=== PATIENT | female | born 1935 | race African-American/Black ===

== ENCOUNTER 2020-05-31 15:45 | Inpatient (IN) | payer BC, MEDICARE ==
[~2020-05-31] VITALS: Ht 157.5 cm; Wt 53.1 kg
[~2020-05-31 15:45] MED LIST: ALPR0.25 PO; APIX5TAB PO; CARV12.545 PO; ETHA25TA2 PO; LISI-186 PO
[2020-05-31 16:51] LABS: BASOPHILS % 0.3 % (0.0-2.0); EOSINOPHILS % 0.1 % (0.0-5.0); HEMATOCRIT. 39.5 % (36.0-48.0); HEMOGLOBIN. 12.6 g/dL (12.0-16.0); LYMPHOCYTES % 21.3 % (20.0-50.0); MEAN CORPUSCULAR HEMOGLOBIN 29.1 pg (28.0-32.0); MEAN CORPUSCULAR VOLUME 90.9 fL (81.0-99.0); MEAN PLATELET VOLUME 8.5 fl (7.4-10.4); MONOCYTES % 6.7 % (2.0-8.0); NEUTROPHILS % 71.6 % (40.0-76.0); PLATELET 195 x1000/uL (130-400); RED BLOOD CELL COUNT 4.34 mill/uL (4.2-5.4); RED CELL DISTRIBUTION WIDTH 15.2 % (11.6-14.6)
[2020-05-31 16:57] LABS: CHLORIDE 108 mEq/L (98-107)
[2020-05-31 16:59] LABS: INR 1.1; PROTHROMBIN TIME 11.7 sec (9.6-11.0)
[2020-05-31] MEDS ORDERED: CALCIUM GLUCONATE 100MG/ML 10ML VIAL IV ONE (17:00)
[2020-05-31] MEDS ORDERED: AMIODARONE HCL 900 MG in DEXT 5% WATER 482 ML IV PRN (17:15)
[2020-05-31] MEDS ORDERED: MAGNESIUM 2 G PREMIX 50 ML IV ONE (17:30)
[2020-05-31] MEDS ORDERED: DEXTROSE 50% WATER 50ML SYRINGE IV PRN (18:30)
[2020-05-31] MEDS ORDERED: ONDANSETRON HCL 4MG/2ML INJ IV PRN (18:30)
[2020-05-31 18:51] LABS: PHOSPHORUS 4.5 mg/dL (2.5-4.9)
[2020-05-31] MEDS ORDERED: PROPOFOL 200MG/20ML VIAL IV ONE (20:00)
[2020-05-31] MEDS ORDERED: FENTANYL CITRATE/PF 50MCG/ML 2ML VIAL IV ONE (20:00)
[2020-05-31 20:14] LABS: BG BASE EXCESS -4.6 mmol/L (-2.0-2.0); BG CARBOXYHEMOGLOBIN 0.2 % (0.5-1.5); BG DEOXYHEMOGLOBIN 0.8 % (0.0-5.0); BG FRACTION INSPIRED OXYGEN 100; BG HCO3 ACT 20.8 mmol/L (22.0-26.0); BG METHEMOGLOBIN 0.2 % (0.0-1.5); BG OXYGEN SATURATION 99.2 % (92.0-98.5); BG OXYHEMOGLOBIN 98.8 % (94.0-97.0); BG PCO2 39.5 mmHg (35.0-45.0); BG PH 7.339 (7.350-7.450); BG PO2 207.9 mmHg (75.0-100.0); BG SAMPLE SITE RIGHT RADIAL; BG TOTAL HEMOGLOBIN 11.5 g/dL (12.0-18.0); BG VENT MODE VENT - AC
[2020-05-31] MEDS ORDERED: PROPOFOL 10MG/ML 100ML 100 ML IV ONE (20:15)
[2020-05-31] MEDS ORDERED: BLOOD SUGAR DIAGNOSTIC STRIP TEST SCH (21:00)
[2020-05-31] MEDS ORDERED: INSULIN LISPRO 100 UNITS/ML SUBCUT SCH (21:00)
[2020-05-31] MEDS ORDERED: IODIXANOL 320MG/ML 200ML BOTTLE ONE (21:04)
[2020-05-31] MEDS ORDERED: LIDOCAINE HCL 1% 20ML VIAL (Pyxis) INJ ONE (21:04)
[2020-05-31] MEDS ORDERED: ATROPINE SULFATE 1MG/10ML SYR IV PRN (21:30)
[2020-05-31] MEDS ORDERED: NICARDIPINE 40MG/200ML PREMIX 200 ML IV PRN (23:00)
[2020-05-31] MEDS ORDERED: DOPAMINE 800MG PREMIX (DOUBLE) 250 ML IV PRN (23:00)
[2020-05-31] MEDS ORDERED: NOREPINEPHRINE 8 MG in DEXT 5% WATER 242 ML IV PRN (23:00)
[2020-05-31] MEDS ORDERED: PHENYLEPHRINE 100 MG in DEXT 5% WATER 240 ML IV PRN (23:00)
[2020-05-31 23:05] LABS: CREATINE KINASE MB FRACTION 4.9 ng/mL (0.5-3.6)
[2020-05-31 23:14] VITALS: BP 201/120
[2020-05-31 23:15] VITALS: BP 201/113
[2020-05-31] MEDS: HYDRALAZINE 20MG/ML VIAL IV PRN (23:28)
[2020-05-31 23:30] VITALS: BP 199/116
[2020-05-31 23:34] VITALS: BP 198/109
[2020-05-31 23:37] VITALS: BP 180/59
[2020-05-31 23:45] VITALS: BP 153/81
[2020-06-01] VITALS (69 sets, daily range): BP systolic 120–186; BP diastolic 44–96
[2020-06-01] MEDS: NICARDIPINE 50 MG in SODIUM CHLORIDE 0.9% 250 ML IV PRN (01:11)
[2020-06-01 05:41] LABS: BASOPHILS % 0.7 % (0.0-2.0); HEMATOCRIT. 33.3 % (36.0-48.0); HEMOGLOBIN. 10.9 g/dL (12.0-16.0); LYMPHOCYTES % 11.1 % (20.0-50.0); MEAN CORPUSCULAR HEMOGLOBIN 29.2 pg (28.0-32.0); MEAN CORPUSCULAR VOLUME 89.4 fL (81.0-99.0); MONOCYTES % 7.7 % (2.0-8.0); NEUTROPHILS % 80.5 % (40.0-76.0); PLATELET 174 x1000/uL (130-400); RED BLOOD CELL COUNT 3.72 mill/uL (4.2-5.4); RED CELL DISTRIBUTION WIDTH 14.9 % (11.6-14.6)
[2020-06-01 05:52] LABS: CHLORIDE 110 mEq/L (98-107)
[2020-06-01 06:04] LABS: LDL CHOLESTEROL 86 mg/dL (5-100)
[2020-06-01 06:06] LABS: CREATINE KINASE 151 IU/L (26-192); HDL CHOLESTEROL 71 mg/dL (40-59)
[2020-06-01 06:08] LABS: CREATINE KINASE MB FRACTION 5.7 ng/mL (0.5-3.6)
[2020-06-01] MEDS: PROPOFOL 10MG/ML 100ML 100 ML IV PRN ×2 (08:48→18:58)
[2020-06-01] MEDS ORDERED: FUROSEMIDE 40MG/4ML VIAL IVP SCH (09:00)
[2020-06-01 09:01] LABS: BG CARBOXYHEMOGLOBIN 0.3 % (0.5-1.5); BG DEOXYHEMOGLOBIN 0.9 % (0.0-5.0); BG FRACTION INSPIRED OXYGEN 70; BG HCO3 ACT 25.7 mmol/L (22.0-26.0); BG METHEMOGLOBIN 0.3 % (0.0-1.5); BG OXYGEN SATURATION 99.1 % (92.0-98.5); BG OXYHEMOGLOBIN 98.5 % (94.0-97.0); BG PCO2 37.1 mmHg (35.0-45.0); BG PH 7.459 (7.350-7.450); BG PO2 197.3 mmHg (75.0-100.0); BG SAMPLE SITE ALINE; BG TOTAL HEMOGLOBIN 11.4 g/dL (12.0-18.0); BG VENT MODE VENT - AC
[2020-06-01] MEDS: ENOXAPARIN 40MG/0.4ML SYR SUBCUT SCH (12:00)
[2020-06-01] MEDS: INSULIN LISPRO 100 UNITS/ML SUBCUT SCH ×2 (12:00→17:50)
[2020-06-01] MEDS: BLOOD SUGAR DIAGNOSTIC STRIP TEST SCH ×2 (12:00→17:50)
[2020-06-01 12:50] LABS: T4 FREE 1.36 ng/dL (0.76-1.46)
[2020-06-01] MEDS ORDERED: IPRATROPIUM/ALBUTEROL 0.5-3(2.5)MG/3ML NEB HHN PRN (15:45)
[2020-06-01] MEDS ORDERED: CEFTRIAXONE 1 G PREMIX 50 ML IV SCH (16:15)
[2020-06-01] MEDS ORDERED: LEVOFLOXACIN 500MG PREMIX 100 ML IV SCH (18:00)
[2020-06-01] MEDS: HYDRALAZINE 20MG/ML VIAL IV PRN (20:52)
[2020-06-02] VITALS (113 sets, daily range): BP systolic 114–192; BP diastolic 20–79
[2020-06-02] MEDS: IPRATROPIUM/ALBUTEROL 0.5-3(2.5)MG/3ML NEB HHN SCH ×3 (00:15→15:34)
[2020-06-02] MEDS: BLOOD SUGAR DIAGNOSTIC STRIP TEST SCH ×5 (00:17→23:31)
[2020-06-02] MEDS: HYDRALAZINE 20MG/ML VIAL IV PRN ×3 (03:42→18:24)
[2020-06-02] MEDS: PROPOFOL 10MG/ML 100ML 100 ML IV PRN ×3 (05:53→13:38)
[2020-06-02] MEDS: INSULIN LISPRO 100 UNITS/ML SUBCUT SCH ×5 (05:53→23:31)
[2020-06-02 06:11] LABS: BASOPHILS % 0.2 % (0.0-2.0); EOSINOPHILS % 0.1 % (0.0-5.0); HEMATOCRIT. 34.2 % (36.0-48.0); LYMPHOCYTES % 11.7 % (20.0-50.0); MEAN CORPUSCULAR HEMOGLOBIN 28.9 pg (28.0-32.0); MEAN CORPUSCULAR VOLUME 89.6 fL (81.0-99.0); MONOCYTES % 8.5 % (2.0-8.0); NEUTROPHILS % 79.5 % (40.0-76.0); PLATELET 179 x1000/uL (130-400); RED BLOOD CELL COUNT 3.81 mill/uL (4.2-5.4); RED CELL DISTRIBUTION WIDTH 15.3 % (11.6-14.6)
[2020-06-02 06:17] LABS: CHLORIDE 110 mEq/L (98-107)
[2020-06-02] MEDS ORDERED: MORPHINE SULFATE 2 MG/ML CPJ (NOT FOR IM USE) IV PRN (10:15)
[2020-06-02] MEDS ORDERED: POTASSIUM CHLORIDE INJ 40 MEQ in DEXT 5% WATER 250 ML IV ONE (11:00)
[2020-06-02] MEDS: ENOXAPARIN 40MG/0.4ML SYR SUBCUT SCH (11:51)
[2020-06-02 17:20] LABS: BG BASE EXCESS -2.4 mmol/L (-2.0-2.0); BG CARBOXYHEMOGLOBIN 0.3 % (0.5-1.5); BG DEOXYHEMOGLOBIN 1.4 % (0.0-5.0); BG FRACTION INSPIRED OXYGEN 40; BG HCO3 ACT 20.3 mmol/L (22.0-26.0); BG METHEMOGLOBIN 0.3 % (0.0-1.5); BG OXYGEN SATURATION 98.6 % (92.0-98.5); BG PH 7.464 (7.350-7.450); BG PO2 139.2 mmHg (75.0-100.0); BG SAMPLE SITE RIGHT RADIAL; BG TOTAL HEMOGLOBIN 11.5 g/dL (12.0-18.0); BG VENT MODE VENT - CPAP
[2020-06-02] MEDS ORDERED: LEVOFLOXACIN 250MG PREMIX 50 ML IV SCH (18:00)
[2020-06-03] VITALS (106 sets, daily range): BP systolic 116–204; BP diastolic 5–113
[2020-06-03] MEDS: IPRATROPIUM/ALBUTEROL 0.5-3(2.5)MG/3ML NEB HHN SCH ×3 (00:33→15:56)
[2020-06-03] MEDS: HYDRALAZINE 20MG/ML VIAL IV PRN ×5 (04:12→20:16)
[2020-06-03] MEDS: BLOOD SUGAR DIAGNOSTIC STRIP TEST SCH ×3 (05:43→17:51)
[2020-06-03] MEDS: INSULIN LISPRO 100 UNITS/ML SUBCUT SCH ×3 (05:46→17:50)
[2020-06-03 06:01] LABS: BASOPHILS % 0.1 % (0.0-2.0); EOSINOPHILS % 0.1 % (0.0-5.0); HEMATOCRIT. 34.3 % (36.0-48.0); LYMPHOCYTES % 10.6 % (20.0-50.0); MEAN CORPUSCULAR HEMOGLOBIN 29.3 pg (28.0-32.0); MEAN CORPUSCULAR VOLUME 91.2 fL (81.0-99.0); MONOCYTES % 8.8 % (2.0-8.0); NEUTROPHILS % 80.4 % (40.0-76.0); PLATELET 187 x1000/uL (130-400); RED BLOOD CELL COUNT 3.76 mill/uL (4.2-5.4); RED CELL DISTRIBUTION WIDTH 15.6 % (11.6-14.6)
[2020-06-03 06:20] LABS: CHLORIDE 110 mEq/L (98-107)
[2020-06-03] MEDS ORDERED: HYDRALAZINE 20MG/ML VIAL IV SCH (09:45)
[2020-06-03] MEDS: ENOXAPARIN 40MG/0.4ML SYR SUBCUT SCH (11:00)
[2020-06-03] MEDS: LACTULOSE 20G/30ML UDC PO SCH ×2 (15:53→22:04)
[2020-06-04] VITALS (65 sets, daily range): BP systolic 121–210; BP diastolic 40–106
[2020-06-04] MEDS: IPRATROPIUM/ALBUTEROL 0.5-3(2.5)MG/3ML NEB HHN SCH ×3 (00:02→15:09)
[2020-06-04] MEDS: HYDRALAZINE 20MG/ML VIAL IV PRN ×3 (02:18→17:10)
[2020-06-04 05:53] LABS: CHLORIDE 115 mEq/L (98-107)
[2020-06-04 06:00] LABS: PROTHROMBIN TIME 11.2 sec (9.6-11.0)
[2020-06-04] MEDS: INSULIN LISPRO 100 UNITS/ML SUBCUT SCH ×4 (06:00→18:00)
[2020-06-04] MEDS: BLOOD SUGAR DIAGNOSTIC STRIP TEST SCH ×4 (06:00→17:42)
[2020-06-04] MEDS: LACTULOSE 20G/30ML UDC PO SCH ×3 (06:00→22:00)
[2020-06-04] MEDS: NICARDIPINE 50 MG in SODIUM CHLORIDE 0.9% 250 ML IV PRN (06:10)
[2020-06-04 06:11] LABS: BASOPHILS % 0.5 % (0.0-2.0); EOSINOPHILS % 0.7 % (0.0-5.0); HEMOGLOBIN. 10.2 g/dL (12.0-16.0); MEAN CORPUSCULAR HEMOGLOBIN 28.7 pg (28.0-32.0); MEAN CORPUSCULAR VOLUME 89.8 fL (81.0-99.0); MEAN PLATELET VOLUME 8.8 fl (7.4-10.4); MONOCYTES % 8.5 % (2.0-8.0); NEUTROPHILS % 78.3 % (40.0-76.0); PLATELET 197 x1000/uL (130-400); RED BLOOD CELL COUNT 3.56 mill/uL (4.2-5.4); RED CELL DISTRIBUTION WIDTH 15.8 % (11.6-14.6)
[2020-06-04] MEDS ORDERED: GENTAMICIN SULF 40MG/ML 2ML VIAL ONE (07:31)
[2020-06-04] MEDS ORDERED: LIDOCAINE HCL 1% 20ML VIAL (Pyxis) INJ ONE ×2 (07:32→07:39)
[2020-06-04] MEDS ORDERED: GENTAMICIN/NS IRRIGATION 500 ML IR ONE (07:32)
[2020-06-04] MEDS ORDERED: IOHEXOL-300 100 ML BOTTLE ONE (07:42)
[2020-06-04] MEDS ORDERED: FENTANYL CITRATE/PF 50MCG/ML 2ML VIAL ONE (07:51)
[2020-06-04] MEDS ORDERED: MIDAZOLAM HCL 2 MG/2 ML VIAL ONE (07:52)
[2020-06-04] MEDS ORDERED: CLINDAMYCIN 600MG PREMIX 50 ML IV SCH (08:00)
[2020-06-04] MEDS ORDERED: ONDANSETRON HCL 4MG/2ML INJ ONE (08:48)
[2020-06-04] MEDS ORDERED: METOPROLOL TARTRATE 5MG/5ML VIAL IV ONE ×2 (08:49→09:04)
[2020-06-04] MEDS ORDERED: HYDROCODONE/ACETAMINOPHEN 5/325MG TABLET PO PRN (09:15)
[2020-06-04] MEDS ORDERED: POTASSIUM CHLORIDE INJ 40 MEQ in DEXT 5% WATER 250 ML IV NR (11:00)
[2020-06-04] MEDS ORDERED: POTASSIUM CHLORIDE 20MEQ/PACKET PO SCH ×2 (13:10→17:00)
[2020-06-04] MEDS ORDERED: METOPROLOL TARTRATE 5MG/5ML VIAL IV SCH (13:15)
[2020-06-04] MEDS ORDERED: BUMETANIDE 0.25MG/ML 2ML VIAL IV SCH (13:30)
[2020-06-04] MEDS: NEBIVOLOL HCL 5 MG TABLET PO SCH ×2 (14:02→22:26)
[2020-06-04] MEDS: METOPROLOL TARTRATE 25MG TABLET PO SCH (19:01)
[2020-06-05] VITALS (18 sets, daily range): BP systolic 103–156; BP diastolic 51–99
[2020-06-05] MEDS: IPRATROPIUM/ALBUTEROL 0.5-3(2.5)MG/3ML NEB HHN SCH ×3 (01:29→15:23)
[2020-06-05 05:55] LABS: BASOPHILS % 0.4 % (0.0-2.0); EOSINOPHILS % 0.5 % (0.0-5.0); HEMATOCRIT. 29.9 % (36.0-48.0); HEMOGLOBIN. 9.9 g/dL (12.0-16.0); LYMPHOCYTES % 16.3 % (20.0-50.0); MEAN CORPUSCULAR VOLUME 90.8 fL (81.0-99.0); MEAN PLATELET VOLUME 8.7 fl (7.4-10.4); MONOCYTES % 10.2 % (2.0-8.0); NEUTROPHILS % 72.6 % (40.0-76.0); PLATELET 186 x1000/uL (130-400); RED CELL DISTRIBUTION WIDTH 15.8 % (11.6-14.6)
[2020-06-05] MEDS: BLOOD SUGAR DIAGNOSTIC STRIP TEST SCH ×3 (06:00→12:08)
[2020-06-05] MEDS: LACTULOSE 20G/30ML UDC PO SCH ×3 (06:00→22:13)
[2020-06-05] MEDS: INSULIN LISPRO 100 UNITS/ML SUBCUT SCH ×3 (06:00→12:00)
[2020-06-05 06:01] LABS: CHLORIDE 111 mEq/L (98-107)
[2020-06-05] MEDS: METOPROLOL TARTRATE 25MG TABLET PO SCH ×2 (09:11→21:29)
[2020-06-05] MEDS: NEBIVOLOL HCL 5 MG TABLET PO SCH (09:11)
[2020-06-05] MEDS: GUAIFENESIN 600MG ER TABLET PO SCH (21:29)
[2020-06-06] MEDS: IPRATROPIUM/ALBUTEROL 0.5-3(2.5)MG/3ML NEB HHN SCH ×4 (00:05→15:46)
[2020-06-06 00:25] VITALS: BP 152/90
[2020-06-06] MEDS: ACETAMINOPHEN 325MG TABLET PO PRN ×2 (05:12→10:30)
[2020-06-06] MEDS: LACTULOSE 20G/30ML UDC PO SCH ×3 (05:21→22:00)
[2020-06-06 08:00] VITALS: BP 151/94
[2020-06-06 10:02] LABS: CHLORIDE 114 mEq/L (98-107)
[2020-06-06] MEDS: AMLODIPINE 5MG TABLET PO SCH (10:27)
[2020-06-06] MEDS: GUAIFENESIN 600MG ER TABLET PO SCH ×2 (10:27→22:00)
[2020-06-06] MEDS: METOPROLOL TARTRATE 25MG TABLET PO SCH ×2 (10:28→22:01)
[2020-06-06 11:44] LABS: BASOPHILS % 0.7 % (0.0-2.0); HEMATOCRIT. 31.1 % (36.0-48.0); HEMOGLOBIN. 10.1 g/dL (12.0-16.0); MEAN CORPUSCULAR HEMOGLOBIN 29.3 pg (28.0-32.0); MEAN CORPUSCULAR VOLUME 89.9 fL (81.0-99.0); MEAN PLATELET VOLUME 8.3 fl (7.4-10.4); MONOCYTES % 11.2 % (2.0-8.0); NEUTROPHILS % 68.1 % (40.0-76.0); PLATELET 198 x1000/uL (130-400); RED BLOOD CELL COUNT 3.46 mill/uL (4.2-5.4); RED CELL DISTRIBUTION WIDTH 15.6 % (11.6-14.6)
[2020-06-06 12:00] VITALS: BP 145/74
[2020-06-06 16:00] VITALS: BP 149/84
[2020-06-06] MEDS ORDERED: METO25TA6 PO (17:18)
[2020-06-06] MEDS ORDERED: AMLO5TAB88 PO ×2 (17:18)
[2020-06-07] MEDS: HYDRALAZINE 20MG/ML VIAL IV PRN (00:45)
[2020-06-07 01:00] VITALS: BP 165/63
[2020-06-07] MEDS: LACTULOSE 20G/30ML UDC PO SCH ×2 (06:00→14:10)
[2020-06-07] MEDS: IPRATROPIUM/ALBUTEROL 0.5-3(2.5)MG/3ML NEB HHN SCH ×2 (06:00→15:19)
[2020-06-07 08:00] VITALS: BP 136/78
[2020-06-07] MEDS: GUAIFENESIN 600MG ER TABLET PO SCH ×2 (09:00→21:12)
[2020-06-07] MEDS ORDERED: ETHACRYNIC ACID 25 MG PO SCH (09:00)
[2020-06-07] MEDS ORDERED: ALPRAZOLAM 0.25 MG TABLET PO SCH ×2 (09:00)
[2020-06-07] MEDS ORDERED: APIXABAN 5 MG TABLET PO SCH (09:00)
[2020-06-07] MEDS ORDERED: CARVEDILOL 12.5MG TABLET PO SCH (09:00)
[2020-06-07] MEDS ORDERED: METOPROLOL TARTRATE 25MG TABLET PO SCH (09:00)
[2020-06-07] MEDS ORDERED: AMLODIPINE 5MG TABLET PO SCH (09:00)
[2020-06-07] MEDS ORDERED: *PATIENT'S OWN MEDICATION STORAGE XX SCH (10:00)
[2020-06-07 11:17] LABS: CHLORIDE 107 mEq/L (98-107)
[2020-06-07 12:00] VITALS: BP 139/82
[2020-06-07] MEDS: APIXABAN 2.5 MG TABLET PO SCH ×2 (13:58→17:59)
[2020-06-07] MEDS: AMLODIPINE 5MG TABLET PO SCH (13:58)
[2020-06-07] MEDS: METOPROLOL TARTRATE 25MG TABLET PO SCH ×2 (13:59→21:11)
[2020-06-07] MEDS: LISINOPRIL 5MG TABLET PO SCH (13:59)
[2020-06-07 16:00] VITALS: BP 142/80
[2020-06-07 20:00] VITALS: BP 142/88
[2020-06-08] VITALS: BP 138/70
[2020-06-08 00:23] LABS: CLARITY URINE CLEAR (CLEAR); COLOR URINE YELLOW (YELLOW); KETONES URINE NEGATIVE (NEGATIVE); LEUKOCYTE ESTERASE URINE 1+ (NEGATIVE); NITRITE URINE NEGATIVE (NEGATIVE); OCCULT BLOOD URINE NEGATIVE (NEGATIVE); PROTEIN URINE TRACE (NEGATIVE); SPECIFIC GRAVITY URINE 1.017 (1.005-1.030)
[2020-06-08] MEDS: IPRATROPIUM/ALBUTEROL 0.5-3(2.5)MG/3ML NEB HHN SCH ×2 (01:57→08:29)
[2020-06-08 04:00] VITALS: BP 140/60
[2020-06-08 08:00] VITALS: BP 116/100
[2020-06-08] MEDS: METOPROLOL TARTRATE 25MG TABLET PO SCH (08:53)
[2020-06-08] MEDS: LISINOPRIL 5MG TABLET PO SCH (08:54)
[2020-06-08] MEDS: APIXABAN 2.5 MG TABLET PO SCH (08:54)
[2020-06-08] MEDS: GUAIFENESIN 600MG ER TABLET PO SCH (08:54)
[2020-06-08] MEDS: AMLODIPINE 5MG TABLET PO SCH (08:54)
[2020-06-08] MEDS ORDERED: APIX2.5T PO (11:08)
[2020-06-08] MEDS ORDERED: AMLO5TAB88 PO ×3 (11:10→11:12)
[2020-06-08 12:00] VITALS: BP 148/80
== END 2020-06-08 13:05 | disposition home health service (06) | DRG 242 ==
LOC: ER 15:53 → CVICU 18:13 → EDBEDREQ 18:18 → EDBEDREQSVC 18:18 → ENRESERV 19:35 → CVICU 06-04 03:00 → 8WST 06-05 16:55
PROVIDERS: ADMIT Family Medicine; ATTEND Family Medicine
PROC: 4A023N7 Measurement of Cardiac Sampling and Pressure, Left Heart, Percutaneous Approach (ICD-10-PCS; 2020-05-31)
PROC: B2111ZZ Fluoroscopy of Multiple Coronary Arteries using Low Osmolar Contrast (ICD-10-PCS; 2020-05-31)
PROC: B2151ZZ Fluoroscopy of Left Heart using Low Osmolar Contrast (ICD-10-PCS; 2020-05-31)
PROC: B517YZZ Fluoroscopy of Left Subclavian Vein using Other Contrast (ICD-10-PCS; 2020-05-31)
PROC: 5A1223Z Performance of Cardiac Pacing, Continuous (ICD-10-PCS; 2020-05-31)
PROC: 0BH17EZ Insertion of Endotracheal Airway into Trachea, Via Natural or Artificial Opening (ICD-10-PCS; 2020-05-31)
PROC: 5A1945Z Respiratory Ventilation, 24-96 Consecutive Hours (ICD-10-PCS; 2020-05-31)
PROC: 0JH606Z Insertion of Pacemaker, Dual Chamber into Chest Subcutaneous Tissue and Fascia, Open Approach (ICD-10-PCS; principal; 2020-06-04)
PROC: 02H63JZ Insertion of Pacemaker Lead into Right Atrium, Percutaneous Approach (ICD-10-PCS; 2020-06-04)
PROC: 02HK3JZ Insertion of Pacemaker Lead into Right Ventricle, Percutaneous Approach (ICD-10-PCS; 2020-06-04)
DX: I44.2 Atrioventricular block, complete (principal); J96.01 Acute respiratory failure with hypoxia; I46.9 Cardiac arrest, cause unspecified; I42.0 Dilated cardiomyopathy; I50.22 Chronic systolic (congestive) heart failure; I48.92 Unspecified atrial flutter; I47.2 Ventricular tachycardia; E78.5 Hyperlipidemia, unspecified; F17.210 Nicotine dependence, cigarettes, uncomplicated; I11.0 Hypertensive heart disease with heart failure; I48.91 Unspecified atrial fibrillation; Z20.822 Contact with and (suspected) exposure to COVID-19; I45.81 Long QT syndrome; Z79.899 Other long term (current) drug therapy; Z88.0 Allergy status to penicillin; Z88.2 Allergy status to sulfonamides; Z88.5 Allergy status to narcotic agent
CPT/HCPCS: 31500; 33208; 33210; 36415; 36600; 71045; 75820; 80048; 80053; 80061; 81003; 82140; 82375; 82550; 82553; 82805; 82962; 83036; 83735; 83880; 84100; 84132; 84439; 84443; 84478; 84480; 84484; 85025; 87426; 92610; 93005; 93306; 93458; 94002; 94003; 94640; 96365; 97116; 97162; 97166; 97530; 97535; 99285; A4565; C1760; C1769; C1785; C1887; C1893; C1898; J0360; J0610; J1580; J1644; J1650; J1815; J1956; J2250; J2405; J2704; J3010; J3475; J3480; J3490; J7050; J7060; L1830; Q9967; A4315

== ENCOUNTER 2020-09-04 11:57 | Emergency (ER) | payer MEDICARE ==
[~2020-09-04] VITALS: Ht 167.6 cm; Wt 54.0 kg
[~2020-09-04 11:57] MED LIST changes: -ALPR0.25 PO; +AMLO5TAB88 PO; +APIX2.5T PO; -APIX5TAB PO; -CARV12.545 PO; -ETHA25TA2 PO; +METO25TA6 PO
[2020-09-04 11:59] VITALS: BP 164/62
== END 2020-09-04 15:11 | disposition left against medical advice (07) ==
LOC: ER 11:57
DX: Z53.21 Procedure and treatment not carried out due to patient leaving prior to being seen by health care provider (principal); H57.89 Other specified disorders of eye and adnexa; Z98.890 Other specified postprocedural states

== ENCOUNTER 2022-09-02 18:30 | Emergency (ER) | payer MEDICARE, OTHER ==
[~2022-09-02] VITALS: Ht 167.6 cm; Wt 45.0 kg
[2022-09-02 18:34] VITALS: BP 155/102; PULSE 60; RESP 20; TEMP 98.4; O2SAT 99
[2022-09-02 19:57] LABS: BASOPHILS % 0.8 % (0.0-2.0); EOSINOPHILS % 2.4 % (0.0-5.0); HEMATOCRIT. 35.6 % (36.0-48.0); HEMOGLOBIN. 11.6 g/dL (12.0-16.0); LYMPHOCYTES % 35.9 % (20.0-50.0); MEAN CORPUSCULAR HEMOGLOBIN 30.2 pg (28.0-32.0); MEAN CORPUSCULAR VOLUME 93.1 fL (81.0-99.0); MEAN PLATELET VOLUME 8.2 fl (7.4-10.4); MONOCYTES % 12.4 % (2.0-8.0); NEUTROPHILS % 48.5 % (40.0-76.0); PLATELET 210 x1000/uL (130-400); RED BLOOD CELL COUNT 3.83 mill/uL (4.2-5.4); RED CELL DISTRIBUTION WIDTH 15.3 % (11.6-14.6)
[2022-09-02 20:06] LABS: CHLORIDE 108 mEq/L (98-107)
[2022-09-02] MEDS ORDERED: MAGNESIUM/ALUMINUM HYDROXIDE/SIMETHICONE 30ML UDC PO ONE (20:30)
[2022-09-02] MEDS ORDERED: FAMOTIDINE 20MG TABLET PO ONE (20:30)
== END 2022-09-02 21:14 | disposition home or self-care (01) ==
LOC: ER 18:30
DX: K08.89 Other specified disorders of teeth and supporting structures (principal); Z95.0 Presence of cardiac pacemaker; Z98.890 Other specified postprocedural states; Z88.0 Allergy status to penicillin
CPT/HCPCS: 36415; 71045; 80053; 84484; 85025; 86850; 86900; 99284

== ENCOUNTER 2025-01-31 13:30 | Inpatient (IN) | payer OTHER ==
[~2025-01-31] VITALS: Ht 165.1 cm; Wt 51.8 kg
[2025-01-31 13:36] VITALS: O2SAT 100
[2025-01-31] MEDS ORDERED: IOHEXOL-350 100 ML BOTTLE ONE (14:29)
[2025-01-31 14:32] LABS: BASOPHILS % 0.9 % (0.0-2.0); EOSINOPHILS % 1.3 % (0.0-5.0); HEMATOCRIT. 34.4 % (36.0-48.0); HEMOGLOBIN. 11.1 g/dL (12.0-16.0); LYMPHOCYTES % 30.4 % (20.0-50.0); MEAN PLATELET VOLUME 8.5 fl (7.4-10.4); MONOCYTES % 10.8 % (2.0-8.0); NEUTROPHILS % 56.6 % (40.0-76.0); PLATELET 186 x1000/uL (130-400); RED BLOOD CELL COUNT 3.64 mill/uL (4.2-5.4); RED CELL DISTRIBUTION WIDTH 16.0 % (11.6-14.6)
[2025-01-31 14:43] LABS: INR 1.1
[2025-01-31 14:44] LABS: CREATININE 1.1 mg/dL (0.6-1.0); TROPONIN I HIGH SENSITIVITY 17 ng/L (3.0-34); UREA NITROGEN BLOOD 19 mg/dL (9-23)
[2025-01-31 14:46] LABS: ASPARTATE AMINOTRANSFERASE 31 IU/L (<34); BILIRUBIN DIRECT 0.2 mg/dL (<=3.0); BILIRUBIN TOTAL 0.5 mg/dL (0.1-1.0)
[2025-01-31 14:47] LABS: PROTEIN TOTAL 6.9 g/dL (6.0-8.3)
[2025-01-31] MEDS: SODIUM CHLORIDE 0.9% (SEPSIS BOLUS) IV ONE (15:48)
[2025-01-31] MEDS: ASPIRIN 325MG EC TABLET PO ONE (15:48)
[2025-01-31] MEDS: LEVOFLOXACIN 750MG PREMIX 150 ML IV ONE (15:48)
[2025-01-31 16:00] VITALS: BP 177/73; PULSE 60; RESP 18; TEMP 36.1; O2SAT 96
[2025-01-31] MEDS ORDERED: ONDANSETRON HCL 4MG/2ML INJ IV PRN (16:45)
[2025-01-31] MEDS ORDERED: IPRATROPIUM/ALBUTEROL 0.5-3(2.5)MG/3ML NEB HHN PRN (16:45)
[2025-01-31] MEDS ORDERED: HYDRALAZINE HCL 10MG TABLET PO PRN (16:45)
[2025-01-31] MEDS ORDERED: MAGNESIUM/ALUMINUM HYDROXIDE/SIMETHICONE 30ML UDC PO PRN (16:45)
[2025-01-31] MEDS ORDERED: DOCUSATE SODIUM 100MG CAPSULE PO PRN (16:45)
[2025-01-31] MEDS ORDERED: ACETAMINOPHEN 325MG TABLET PO PRN ×2 (16:45)
[2025-01-31 16:50] LABS: TROPONIN I HIGH SENSITIVITY 18 ng/L (3.0-34)
[2025-01-31 17:04] VITALS: BP 177/73; PULSE 60; RESP 18; TEMP 36.0844
[2025-01-31] MEDS: AZITHROMYCIN 500MG/250ML 250 ML IV SCH (18:19)
[2025-01-31] MEDS: METOPROLOL TARTRATE 25MG TABLET PO SCH (18:19)
[2025-01-31] MEDS: LOSARTAN 50 MG TABLET PO SCH (18:19)
[2025-01-31 20:00] VITALS: BP 150/70; PULSE 60; RESP 20; TEMP 36.6; O2SAT 100
[2025-01-31] MEDS ORDERED: ATORVASTATIN CALCIUM 40MG TABLET PO SCH (21:00)
[2025-01-31] MEDS: ATORVASTATIN CALCIUM 40MG TABLET PO SCH (22:08)
[2025-01-31] MEDS: SODIUM CHLORIDE 0.9% 1,000 ML IV SCH (22:08)
[2025-02-01] VITALS (7 sets, daily range): BP systolic 145–185; BP diastolic 62–92; PULSE 59–60; RESP 15–20; TEMP 36.2–36.6; O2SAT 96–100
[2025-02-01 07:45] LABS: ASPARTATE AMINOTRANSFERASE 29 IU/L (<34); BILIRUBIN DIRECT 0.2 mg/dL (<=3.0); BILIRUBIN TOTAL 0.6 mg/dL (0.1-1.0); CREATININE 1.0 mg/dL (0.6-1.0); PROTEIN TOTAL 6.7 g/dL (6.0-8.3); TRIGLYCERIDE 72 mg/dL (0-150); UREA NITROGEN BLOOD 19 mg/dL (9-23)
[2025-02-01 07:46] LABS: BASOPHILS % 0.8 % (0.0-2.0); EOSINOPHILS % 2.5 % (0.0-5.0); HEMATOCRIT. 34.5 % (36.0-48.0); HEMOGLOBIN. 11.3 g/dL (12.0-16.0); LDL CHOLESTEROL 61 mg/dL (5-100); LYMPHOCYTES % 38.1 % (20.0-50.0); MEAN PLATELET VOLUME 9.0 fl (7.4-10.4); MONOCYTES % 11.5 % (2.0-8.0); NEUTROPHILS % 47.1 % (40.0-76.0); PLATELET 182 x1000/uL (130-400); RED BLOOD CELL COUNT 3.68 mill/uL (4.2-5.4); RED CELL DISTRIBUTION WIDTH 16.2 % (11.6-14.6)
[2025-02-01 07:47] LABS: T4 FREE 1.37 ng/dL (0.89-1.76)
[2025-02-01] MEDS: METOPROLOL TARTRATE 25MG TABLET PO SCH (11:20)
[2025-02-01] MEDS: ASPIRIN 81MG EC TABLET PO SCH (11:21)
[2025-02-01] MEDS: AMLODIPINE 5MG TABLET PO SCH (11:21)
[2025-02-01] MEDS: PANTOPRAZOLE SODIUM 40 MG/VIAL IV SCH (11:22)
[2025-02-02] VITALS: BP 155/64; PULSE 60; RESP 20; TEMP 36.4; O2SAT 98
[2025-02-02 04:00] VITALS: BP 152/66; PULSE 60; RESP 19; TEMP 36.4; O2SAT 99
[2025-02-02 08:00] VITALS: BP 152/62; RESP 18; TEMP 36.6; O2SAT 96
[2025-02-02 09:08] LABS: BASOPHILS % 0.6 % (0.0-2.0); EOSINOPHILS % 1.6 % (0.0-5.0); HEMATOCRIT. 36.3 % (36.0-48.0); HEMOGLOBIN. 11.7 g/dL (12.0-16.0); LYMPHOCYTES % 31.5 % (20.0-50.0); MEAN PLATELET VOLUME 9.1 fl (7.4-10.4); MONOCYTES % 10.1 % (2.0-8.0); NEUTROPHILS % 56.2 % (40.0-76.0); PLATELET 197 x1000/uL (130-400); RED BLOOD CELL COUNT 3.83 mill/uL (4.2-5.4); RED CELL DISTRIBUTION WIDTH 16.2 % (11.6-14.6)
[2025-02-02 09:24] LABS: CREATININE 1.1 mg/dL (0.6-1.0); UREA NITROGEN BLOOD 12.0 mg/dL (9-23)
[2025-02-02 12:00] VITALS: BP 155/70; RESP 18; TEMP 36.2; O2SAT 98
[2025-02-02] MEDS: CLOPIDOGREL 75MG TABLET PO SCH (13:45)
[2025-02-02 16:00] VITALS: BP 160/72; RESP 18; TEMP 36.2; O2SAT 98
[2025-02-02 16:41] LABS: CLARITY URINE CLEAR (CLEAR); COLOR URINE YELLOW (YELLOW); GLUCOSE URINE NEGATIVE (NEGATIVE); KETONES URINE NEGATIVE (NEGATIVE); LEUKOCYTE ESTERASE URINE 1+ (NEGATIVE); NITRITE URINE NEGATIVE (NEGATIVE); OCCULT BLOOD URINE NEGATIVE (NEGATIVE); PH URINE 6.5 (4.5-8.0); PROTEIN URINE NEGATIVE (NEGATIVE); SPECIFIC GRAVITY URINE 1.014 (1.005-1.030); UROBILINOGEN URINE 1.0 E.U./dL (0.2-1.0)
[2025-02-02 16:54] LABS: SQUAMOUS EPITHELIAL CELL URINE FEW /lpf (RARE/1+)
[2025-02-02 16:55] LABS: BACTERIA URINE 2+; WBC URINE 25-50 /hpf (0-2)
[2025-02-02] MEDS: AZITHROMYCIN 500 MG TABLET PO SCH (18:47)
[2025-02-02 20:00] VITALS: BP 156/70; PULSE 60; RESP 19; TEMP 36.2; O2SAT 100
[2025-02-03] VITALS: BP 156/83; PULSE 60; RESP 19; TEMP 36.2; O2SAT 96
[2025-02-03 04:00] VITALS: BP 142/61; PULSE 59; RESP 18; TEMP 35.6; O2SAT 98
[2025-02-03 08:00] VITALS: BP 148/67; PULSE 67; RESP 18; TEMP 36.8; O2SAT 98
[2025-02-03 12:00] VITALS: BP 143/78; PULSE 60; RESP 16; TEMP 35.9; O2SAT 98
[2025-02-03 16:00] VITALS: BP_DIAS 63; PULSE 60; RESP 17; TEMP 36.3; O2SAT 96
[2025-02-03] MEDS ORDERED: THROAT LOZENGES-BENZOCAINE/MENTH/CETYLPYRD CL LOZENGES MM PRN (20:30)
[2025-02-03] MEDS: GUAIFENESIN 200MG/10ML SUGAR FREE UDC PO PRN (20:40)
[2025-02-04] VITALS: BP 133/56; PULSE 56; RESP 18; TEMP 36.2; O2SAT 99
[2025-02-04 04:00] VITALS: BP 131/58; PULSE 60; RESP 18; TEMP 36.3; O2SAT 100
[2025-02-04 07:56] LABS: BASOPHILS % 0.7 % (0.0-2.0); EOSINOPHILS % 2.0 % (0.0-5.0); HEMATOCRIT. 38.0 % (36.0-48.0); HEMOGLOBIN. 12.3 g/dL (12.0-16.0); LYMPHOCYTES % 29.7 % (20.0-50.0); MEAN PLATELET VOLUME 9.1 fl (7.4-10.4); MONOCYTES % 11.5 % (2.0-8.0); NEUTROPHILS % 56.1 % (40.0-76.0); PLATELET 205 x1000/uL (130-400); RED BLOOD CELL COUNT 4.05 mill/uL (4.2-5.4); RED CELL DISTRIBUTION WIDTH 15.8 % (11.6-14.6)
[2025-02-04 08:00] VITALS: BP 128/70; PULSE 75; RESP 17; TEMP 36.9; O2SAT 96
[2025-02-04 08:15] LABS: CREATININE 1.0 mg/dL (0.6-1.0); UREA NITROGEN BLOOD 12 mg/dL (9-23)
[2025-02-04 12:00] VITALS: BP 143/65; PULSE 60; RESP 17; TEMP 36.9; O2SAT 100
[2025-02-04 16:30] VITALS: BP 124/52; PULSE 60; RESP 17; TEMP 36.2; O2SAT 100
[2025-02-04 20:00] VITALS: BP 148/64; PULSE 60; RESP 18; TEMP 36.2; O2SAT 100
[2025-02-05] VITALS: BP 124/52; PULSE 61; RESP 18; TEMP 36.2; O2SAT 100
[2025-02-05 04:00] VITALS: BP 128/53; PULSE 61; RESP 18; TEMP 36.8; O2SAT 96
[2025-02-05 08:00] VITALS: BP 148/69; PULSE 59; RESP 17; TEMP 35.7; O2SAT 97
[2025-02-05] MEDS ORDERED: METOPROLOL TARTRATE 5MG/5ML VIAL IV PRN (10:30)
[2025-02-05 12:00] VITALS: BP 144/59; PULSE 59; RESP 18; TEMP 36.2; O2SAT 97
[2025-02-05 16:00] VITALS: BP 135/60; PULSE 60; RESP 17; TEMP 36.1; O2SAT 96
[2025-02-05 20:00] VITALS: BP 131/52; PULSE 59; RESP 18; TEMP 36.6; O2SAT 99
[2025-02-05 21:17] LABS: BASOPHILS % 0.4 % (0.0-2.0); EOSINOPHILS % 1.1 % (0.0-5.0); HEMATOCRIT. 36.8 % (36.0-48.0); HEMOGLOBIN. 11.8 g/dL (12.0-16.0); LYMPHOCYTES % 17.4 % (20.0-50.0); MEAN PLATELET VOLUME 9.4 fl (7.4-10.4); MONOCYTES % 11.7 % (2.0-8.0); NEUTROPHILS % 69.4 % (40.0-76.0); PLATELET 179 x1000/uL (130-400); RED BLOOD CELL COUNT 3.86 mill/uL (4.2-5.4); RED CELL DISTRIBUTION WIDTH 16.2 % (11.6-14.6)
[2025-02-05] MEDS: APIXABAN 2.5 MG TABLET PO SCH (21:24)
[2025-02-05 21:36] LABS: CREATININE 1.2 mg/dL (0.6-1.0)
[2025-02-05 21:37] LABS: UREA NITROGEN BLOOD 20.0 mg/dL (9-23)
[2025-02-05] MEDS ORDERED: ALPR0.25 MT (21:39)
[2025-02-06] VITALS: BP 131/59; PULSE 60; RESP 19; TEMP 36.4; O2SAT 98
[2025-02-06 04:00] VITALS: BP 128/60; PULSE 61; RESP 18; TEMP 36.4; O2SAT 98
[2025-02-06 06:39] LABS: BASOPHILS % 0.7 % (0.0-2.0); EOSINOPHILS % 0.9 % (0.0-5.0); HEMATOCRIT. 37.8 % (36.0-48.0); HEMOGLOBIN. 12.3 g/dL (12.0-16.0); LYMPHOCYTES % 22.6 % (20.0-50.0); MEAN PLATELET VOLUME 8.6 fl (7.4-10.4); MONOCYTES % 10.9 % (2.0-8.0); NEUTROPHILS % 64.9 % (40.0-76.0); PLATELET 197 x1000/uL (130-400); RED BLOOD CELL COUNT 4.02 mill/uL (4.2-5.4); RED CELL DISTRIBUTION WIDTH 15.7 % (11.6-14.6)
[2025-02-06 07:05] LABS: CREATININE 1.1 mg/dL (0.6-1.0)
[2025-02-06 07:06] LABS: UREA NITROGEN BLOOD 17.0 mg/dL (9-23)
[2025-02-06 08:00] VITALS: BP 150/69; PULSE 60; RESP 18; TEMP 36.1; O2SAT 96
[2025-02-06] MEDS ORDERED: ASPI-1406 PO (09:32)
[2025-02-06] MEDS ORDERED: LIP40 PO (09:32)
[2025-02-06] MEDS ORDERED: APIX2.5T PO (09:33)
[2025-02-06] MEDS: NITROGLYCERIN SPRAY/4.9GM CAN TL ONE (11:05)
[2025-02-06 12:00] VITALS: BP 120/54; PULSE 59; RESP 18; TEMP 36.3; O2SAT 96
[2025-02-06] MEDS ORDERED: IOHEXOL-350 100 ML BOTTLE ONE (12:43)
[2025-02-06 13:12] VITALS: BP 138/57; PULSE 60; RESP 18; TEMP 96.7
== END 2025-02-06 15:45 | disposition home or self-care (01) | DRG 69 ==
LOC: ER 13:30 → EDBEDREQTM 15:08 → EDBEDREQ 15:08 → 6WST 15:56
PROVIDERS: ADMIT Internal Medicine; ATTEND Internal Medicine
DX: G45.9 Transient cerebral ischemic attack, unspecified (principal); D63.8 Anemia in other chronic diseases classified elsewhere; I11.0 Hypertensive heart disease with heart failure; N17.9 Acute kidney failure, unspecified; Z79.01 Long term (current) use of anticoagulants; Z79.02 Long term (current) use of antithrombotics/antiplatelets; I48.92 Unspecified atrial flutter; I48.19 Other persistent atrial fibrillation; I48.91 Unspecified atrial fibrillation; I44.30 Unspecified atrioventricular block; E78.5 Hyperlipidemia, unspecified; F41.9 Anxiety disorder, unspecified; I25.10 Atherosclerotic heart disease of native coronary artery without angina pectoris; F17.200 Nicotine dependence, unspecified, uncomplicated; I25.2 Old myocardial infarction; Z95.810 Presence of automatic (implantable) cardiac defibrillator; Z79.82 Long term (current) use of aspirin; Z79.899 Other long term (current) drug therapy; Z88.0 Allergy status to penicillin; Z88.2 Allergy status to sulfonamides; Z88.8 Allergy status to other drugs, medicaments and biological substances
CPT/HCPCS: 36415; 70496; 70498; 70551; 71045; 71275; 80048; 80061; 80076; 80320; 81003; 82962; 83036; 83605; 83735; 83880; 84439; 84443; 84484; 85025; 86850; 86900; 92523; 92610; 93005; 93306; 93970; 97116; 97162; 97165; 97530; 99291; A4606; J0456; J1956; J2470; J7030; Q9967; G0480